=== PATIENT | male | born 1970 | race Caucasian/White ===

== ENCOUNTER 2025-01-19 15:11 | Emergency (ER) | payer OTHER, SELFPAY ==
[2025-01-19 15:11] VITALS: BMI 28.8
[2025-01-19 15:18] VITALS: BP 153/92
[2025-01-19 15:47] LABS: % Basophils 0.9 % (0-2); % Eosinophils 4.4 % (0-6); % Immature Granulocytes 0.2 % (0-0.5); % Lymphocytes 37.5 % (20.5-51.1); Absolute Basophils 0.1 10^3/uL (0-0.2); Absolute Eosinophils 0.3 10^3/uL (0-0.7); Absolute Lymphocytes 2.1 10^3/uL (1.2-3.4); Absolute Monocytes 0.6 10^3/uL (0.1-0.6); Absolute Neutrophils 2.7 10^3/uL (1.4-6.5); Hematocrit 41.7 % (39.0-52.0); Hemoglobin 14.7 g/dL (13.0-18.0); Mean Corp Hgb Conc. 35.3 g/dL (33.0-37.0); Mean Corpuscular Hgb 32.6 pg (27.0-31.0); Mean Corpuscular Volume 92.5 fL (80.0-94.0); Mean Platelet Volume 9.8 fL (7.4-10.4); Nucleated Red Blood Cells % 0 % (-); Platelet Count 208 10^3/uL (130-400); Red Blood Cell Count 4.51 10^6/uL (4.70-6.10); Red Cell Dist. Width 12.5 % (11.5-14.5); White Blood Cell Count 5.7 10^3/uL (4.8-10.8)
[2025-01-19 15:55] LABS: ALT (SGPT) 19 U/L (0-50); AST (SGOT) 21 U/L (17-59); Albumin 4.2 g/dl (3.5-5.0); Alkaline Phosphatase 80 U/L (38-126); Blood Urea Nitrogen 14 mg/dl (9-20); Calcium 9.1 mg/dl (8.4-10.2); Carbon Dioxide 28 mmol/L (22-30); Chloride 108 mmol/L (98-107); Glucose 75 mg/dl (70-99); Potassium 3.9 mmol/L (3.5-5.1); Sodium 141 mmol/L (135-145); Total Bilirubin 1.9 mg/dl (0.2-1.3); Total Protein 6.9 g/dl (6.3-8.2); eGFR > 60.00
[2025-01-19 16:07] LABS: Troponin I < 0.012 ng/ml
[2025-01-19 16:14] VITALS: BP 128/91
--- NOTE | 2025-01-19 16:36 | ED.GENMED ---
History of Present Illness
<Savita Valentine LOAN BROKER - Last Filed: 01/20/25 00:26>
General
Chief Complaint: Ear Problem
Source: patient
Exam Limitations: none
Time Seen by Provider: 01/19/25 16:23
Nursing documentation reviewed up to this point in time: agreed with
History of Present Illness
History of Present Illness:
54 yo male with no sig PMHX presents for left ear, face, neck pain radiating across anterior neck to right shoulder area.
In Oct, treated for left ear infection and sinus problems with 2 different antibiotics and steroids, last antibiotic was 6 weeks ago, minimal improvement in L ear pain but no improvement
Two weeks ago left ear felt 'less clogged' but he has been hearing pulsations with his heart beats since. Also has developed aching pain left side of face, neck radiating across anterior neck to right shoulder. These pains are not bad in the
mornings but worsen as day goes on and left side neck 'gets stiff.' Mild lightheadedness also. He denies balance problems but does 'tend to lean to my left more.' Symptoms are limiting his ADLs.
Denies change in vision, n/v/d/c. Denies CP or SOB.
Past History
<Savita Valentine LOAN BROKER - Last Filed: 01/20/25 00:26>
Past History
ED Past Medical History: None
ED Past Surgical History: Orthopedic
Social History
Tobacco: Non-smoker
Alcohol: Occasional
Personal:
Living: with family
Employment: Employed
Review of Systems
<Savita Valentine LOAN BROKER - Last Filed: 01/20/25 00:26>
Review of Systems
Allergies reviewed?: Yes
All Other Systems: ROS reviewed and negative except as documented in HPI and ROS
EENT: Reports other (left ear pain, pain L side of face, neck radiating across anterior neck to right shoulder)
Phy Exam
<Savita Valentine, LOAN BROKER - Last Filed: 01/20/25 00:26>
Physical Exam
Physical Exam:
GENERAL: No acute distress. A&Ox3.
CONSTITUTIONAL: Afebrile.
Head: No temporal tenderness
EYES: clear, conjunctivae normal
ENMT: moist mucus membranes, Pharynx nl, right TM normal, left TM mildly erythematous and retracted, ear canal normal
Neck: No lymphadenopathy or swelling
RESPIRATORY: Regular respirations, nonlabored, lungs clear.
CARDIOVASCULAR: Regular rate and rhythm, no murmurs, no rubs.
GI: Soft, nontender, normal BS
MUSCULOSKELETAL: Moves with ease. Well perfused.
SKIN: Warm, dry, pink
PSYCH: Normal mood and affect. Well kept, interactive and appropriate
NEUROLOGIC: Awake, alert and oriented. No focal neurological deficits
Course
<Savita Valentine, LOAN BROKER - Last Filed: 01/20/25 00:26>
Orders/Labs/Results
Orders:
Orders
01/19/25 15:22
EKG [Electrocardiogram (*1)] Urgent
Reason for Study: Chest Pain
EKG- Treatment ONCE
01/19/25 15:33
Complete Blood Count/With Diff Urgent
Comprehensive Metabolic Panel Urgent
Erythrocyte Sed Rate Urgent
Comment: ADD ON
Troponin I Urgent
01/19/25 16:44
Add On- LAB Urgent
Tests Added?: Sed rate
01/19/25 16:46
CT Head & Neck Angio W/wo IV Urgent
Comment:
Reason For Exam: Pain L head and neck, pulsations in L ear,
Abnormal Lab Results
01/19/25
15:33
RBC 4.51 L 10^6/uL
(4.70-6.10)
MCH 32.6 H pg
(27.0-31.0)
Monocytes % 10.0 H %
(1.7-9.3)
Chloride 108 H mmol/L
(98-107)
Total Bilirubin 1.9 H mg/dl
(0.2-1.3)
01/19/25 15:33
01/19/25 15:33
Vital Signs
Initial and Last Documented VS:
Initial Vital Signs
Temp Pulse Resp BP Pulse Ox
97.2 F 55 18 153/92 99
01/19/25 15:18 01/19/25 15:18 01/19/25 15:18 01/19/25 15:18 01/19/25 15:18
Last Documented Vital Signs
Temp Pulse Resp BP Pulse Ox
97.2 F 60 13 121/85 99
01/19/25 15:18 01/19/25 19:46 01/19/25 19:46 01/19/25 19:46 01/19/25 19:30
Rail Operations Controller consulted with Physician
Rail Operations Controller consulted with physician?: Yes
Name of Physician Consulted: Trey
<Christophe Yang MD - Last Filed: 01/19/25 21:43>
Orders/Labs/Results
Orders:
Orders
01/19/25 15:22
EKG [Electrocardiogram (*1)] Urgent
Reason for Study: Chest Pain
EKG- Treatment ONCE
01/19/25 15:33
Complete Blood Count/With Diff Urgent
Comprehensive Metabolic Panel Urgent
Erythrocyte Sed Rate Urgent
Comment: ADD ON
Troponin I Urgent
01/19/25 16:44
Add On- LAB Urgent
Tests Added?: Sed rate
01/19/25 16:46
CT Head & Neck Angio W/wo IV Urgent
Comment:
Reason For Exam: Pain L head and neck, pulsations in L ear,
Abnormal Lab Results
01/19/25
15:33
RBC 4.51 L 10^6/uL
(4.70-6.10)
MCH 32.6 H pg
(27.0-31.0)
Monocytes % 10.0 H %
(1.7-9.3)
Chloride 108 H mmol/L
(98-107)
Total Bilirubin 1.9 H mg/dl
(0.2-1.3)
01/19/25 15:33
01/19/25 15:33
Vital Signs
Initial and Last Documented VS:
Initial Vital Signs
Temp Pulse Resp BP Pulse Ox
97.2 F 55 18 153/92 99
01/19/25 15:18 01/19/25 15:18 01/19/25 15:18 01/19/25 15:18 01/19/25 15:18
Last Documented Vital Signs
Temp Pulse Resp BP Pulse Ox
97.2 F 60 13 121/85 99
01/19/25 15:18 01/19/25 19:46 01/19/25 19:46 01/19/25 19:46 01/19/25 19:30
<Savita Valentine LOAN BROKER - Last Filed: 01/20/25 00:26>
MDM/Problems Addressed
Differential Diagnosis Includes:
ACS, carotid/cerebrovascular pathology, temporal arteritis, brain tumor
MDM/Problems Addressed:
54 yo male with no sig PMHX presents for left ear, face, neck pain radiating across anterior neck to right shoulder area.
In Oct, treated for left ear infection and sinus problems with 2 different antibiotics and steroids, last antibiotic was 6 weeks ago, minimal improvement in L ear pain but no improvement
Two weeks ago left ear felt 'less clogged' but he has been hearing pulsations with his heart beats since. Also has developed aching pain left side of face, neck radiating across anterior neck to right shoulder. These pains are not bad in the
mornings but worsen as day goes on and left side neck 'gets stiff.' Mild lightheadedness also. He denies balance problems but does 'tend to lean to my left more.' Symptoms are limiting his ADLs.
Denies change in vision, n/v/d/c. Denies CP or SOB.
Afebrile NAD
EKG sinus bradycardia
5:00 PM:
CBC normal
CMP with no clinically significant abnormality.
Sed rate normal
Troponin normal
Case discussed with Dr. Yang who evaluated patient and agrees with CTA
CTA reveals no abnormality
Patient reassured. at bedside is asking whether these symptoms can be stress related as 'he cannot relax.'
Referral to ENT given
Patient ambulated out with steady gait at discharge
<Savita aVlentine NP - Last Filed: 01/20/25 00:26>
*EKG
EKG Intrepretation Date: 01/19/25
Interpretation: abnormal
Heart Rate: 53
Rate: bradycardiac
Rhythm: sinus
[place]: left axis deviation
Interval: normal interval
QRS Pattern: normal QRS
Ischemia: no ischemia
*Critical Care Note
Total Time (30-74mins, 75-104mins- exclusive of procedures): Not Applicable
ED Attending Note
<Savita Valentine NP - Last Filed: 01/20/25 00:26>
-
Portions of this chart may have been created with voice recognition software.� Occasional wrong word or��sound alike� substitutions may have occurred due to the inherent limitations of voice recognition software.
<Christophe Yang MD - Last Filed: 01/19/25 21:43>
ED Attending Note
Patient seen and examined by attending physician: Yes
I performed the substantive portion of visit, reviewed & personally made and approve the management plan that is documented in note by myself or LEROY.: Yes
ED Attending Note:
54-year-old male months of left ear pain left facial pain with some radiation of the right shoulder. Progressive. Now hearing a whooshing sensation. Sent in for further evaluation. No visual issues no double vision no neurologic issues. Some
slight dizziness.
On exam patient is nontoxic in no distress. Speech is normal. Cranial nerves II through XII intact. Extraocular muscles intact. TMs are clear. No mastoid tenderness. No carotid bruit. [id number] normal. Nonfocal.
Progressive left facial pain. Highly doubt cardiac. EKG and troponin negative. CT angio needed to rule out vascular issue. ESR pending.
Discharge Plan
Departure
Patient Disposition: Home (Routine Discharge)
Date of Disposition: 01/19/25
Time of Disposition: 19:29
Patient with high blood pressure during this ER visit?: No
Condition: Good
Discharge Problem:
Left ear pain
Instructions: Stress
Referrals:
NONE,* [Family Provider] -
Pb Rucker MD [Active] - Next open appointment
Activity Restrictions/Additional Instructions:
As we discussed, nothing worrisome in your exam and workup here tonight.
Tylenol or ibuprofen as needed for pain follow-up with the ENT doctor.
Interventions
Interventions:
*Risk Screen - Suicide Last Done: 01/19/25 15:21
*General Assessment Last Done: 01/19/25 15:21
*Neglect/Abuse Screening Last Done: 01/19/25 15:21
*ED- Fall Risk Assessment Last Done: 01/19/25 16:07
*ED COVID-19 Vaccine History Last Done: 01/19/25 19:49
*Nursing Disposition Last Done: 01/19/25 19:49
Discharge Date and Time
Discharge Date/Time: 01/19/25 19:49
Print Language: FRISIAN
[2025-01-19 17:00] VITALS: BP 132/94
[2025-01-19 17:13] LABS: Erythrocyte Sed Rate 4 mm/hour (0-20)
[2025-01-19 19:46] VITALS: BP 121/85
== END 2025-01-19 19:49 | disposition home or self-care (01) ==
LOC: EMR 15:11
PROVIDERS: Emergency Medicine; EMERGENCY PHYSICIAN Emergency Medicine
DX: H92.02 Otalgia, left ear (principal); M54.2 Cervicalgia; R51.9 Headache, unspecified; R00.1 Bradycardia, unspecified; R42 Dizziness and giddiness
CPT/HCPCS: 99284; 70496; 70498; 80053; 84484; 85025; 85652; 93005; Q9967